=== PATIENT | female | born 1985 | race Two or more races ===

== ENCOUNTER 2021-05-02 17:23 | Emergency (ER) | payer OTHER ==
[~2021-05-02] VITALS: Ht 157.5 cm; Wt 65.0 kg
[2021-05-02 18:30] LABS: BASOPHILS % 0.7 % (0.0-2.0); EOSINOPHILS % 3.5 % (0.0-5.0); HEMATOCRIT. 34.3 % (36.0-48.0); HEMOGLOBIN. 12.3 g/dL (12.0-16.0); LYMPHOCYTES % 22.9 % (20.0-50.0); MEAN CORPUSCULAR HEMOGLOBIN 31.1 pg (28.0-32.0); MEAN PLATELET VOLUME 8.4 fl (7.4-10.4); MONOCYTES % 5.4 % (2.0-8.0); NEUTROPHILS % 67.5 % (40.0-76.0); PLATELET 308 x1000/uL (130-400); RED BLOOD CELL COUNT 3.95 mill/uL (4.2-5.4); RED CELL DISTRIBUTION WIDTH 13.1 % (11.6-14.6)
[2021-05-02] MEDS ORDERED: TETANUS, DIPHTHERIA, PERTUSSIS VAC/PF 0.5ML (>7YR OLD) IM ONE (18:30)
[2021-05-02 18:33] LABS: CHLORIDE 107 mEq/L (98-107)
[2021-05-02 20:00] VITALS: BP 105/66
== END 2021-05-02 20:05 | disposition home or self-care (01) ==
LOC: ER 17:23
DX: R55 Syncope and collapse (principal); S00.03XA Contusion of scalp, initial encounter; W18.30XA Fall on same level, unspecified, initial encounter; Y93.89 Activity, other specified; Y92.9 Unspecified place or not applicable; Z98.890 Other specified postprocedural states
CPT/HCPCS: 36415; 80053; 81025; 83880; 84484; 85025; 90471; 90715; 93005; 99284